=== PATIENT | female | born 1965 | race Caucasian/White ===

== ENCOUNTER 2024-09-18 09:54 | Emergency (ER) | payer MEDICAID, SELFPAY ==
[2024-09-18 10:20] VITALS: BP 155/102; PULSE 76; RESP 18; TEMP 36.8; O2SAT 98; BMI 28.1
--- NOTE | 2024-09-18 10:30 | XR_ITS ---
Examination: Bilateral hands, 6 views. Technique: AP, Oblique, Lateral each hand total 6 views Date and time of exam: September 18, 2024 10:40 AM INDICATIONS: Patient fell one month ago with injury to both hands, head pain Findings: Soft tissue atrophic change right second digit tip Prominent osteopenia Old fracture deformity ungual tuft tip distal phalanx right third digit No acute fracture No opaque foreign body IMPRESSION: No acute fracture
--- NOTE | 2024-09-18 10:30 | PD.EDRME ---
Rapid Medical Screening Exam RME Arrival date/time: 09/18/24 09:54 59-year-old homeless female presents emergency department complaints of pain to bilateral hands worse right index finger Chief Complaint: Hand/Wrist Problems Vital signs: Vital Signs Temperature 98.2 F 09/18/24 10:20 Pulse Rate 76 09/18/24 10:20 Respiratory Rate 18 09/18/24 10:20 Blood Pressure 155/102 H 09/18/24 10:20 Pulse Oximetry (%) 98 09/18/24 10:20 Oxygen Delivery Method Room Air 09/18/24 10:20
[2024-09-18 11:07] LABS: Lactate (Lactic Acid) 1.6 mMol/L (0.4-2.0)
[2024-09-18 11:10] LABS: Basophils % (Auto) 1 % (0-2.5); Eosinophils # (Auto) 0.2 Thou/mm3 (0.0-0.5); Eosinophils % (Auto) 3 % (0-10); Hematocrit 37.6 % (36.0-46.0); Hemoglobin 13.2 g/dL (12.0-16.0); Immature Granulocytes % (Auto) 0 % (0-0); Immature Granulocytes Auto 0.02 Thou/mm3 (0.00-0.00); Lymphocytes # (Auto) 1.6 Thou/mm3 (1.0-4.8); Lymphocytes % (Auto) 29 % (10-50); Mean Corpuscular HGB Conc 35.1 g/dl (31.0-37.0); Mean Corpuscular Hemoglobin 31.1 pg (25.0-35.0); Mean Corpuscular Volume 89 fL (80-100); Monocytes # (Auto) 0.4 Thou/mm3 (0.0-0.8); Monocytes % (Auto) 7 % (0-12); Neutrophils # (Auto) 3.5 Thou/mm3 (1.8-7.7); Neutrophils % (Auto) 61 % (37-80); Nucleated Red Blood Cell % 0 /100 WBC (0); Platelet Count 275 Thou/mm3 (140-440); RDW Standard Deviation 40.7 fL (36.4-46.3); Red Blood Count 4.25 Miln/mm3 (4.00-5.20); White Blood Count 5.7 Thou/mm3 (3.6-11.0)
[2024-09-18 11:27] LABS: Sed Rate (ESR) 4 mm/hr (0-30)
[2024-09-18 11:46] LABS: Amphetamine/Methamp Scrn,U Positive (Negative); Barbiturate Screen,Urine Negative (Negative); Benzodiazepines Screen,Urine Negative (Negative); Benzoylecgonine Screen, Ur Negative (Negative); Fentanyl Screen,Urine Negative (Negative); Opiate Screen,Urine Negative (Negative); THC Screen,Urine Positive (Negative)
[2024-09-18 11:47] LABS: Alanine Aminotransferase 16 U/L (10-49); Albumin, Serum 4.3 gm/dL (3.5-5.0); Albumin/Globulin Ratio 1.9 (1.2-2.2); Alkaline Phosphatase 83 U/L (46-116); Anion Gap 8 (7-16); Aspartate Amino Transferase 19 U/L (0-34); BUN/Creatinine Ratio 20 Ratio (12-20); Bilirubin,Total 0.7 mg/dL (0.3-1.2); Blood Urea Nitrogen 16 mg/dL (9-23); C-Reactive Protein < 0.4 mg/dL (0.0-0.9); Calcium 9.4 mg/dL (8.3-10.6); Calcium (Corrected) 9.4 mg/dL (8.5-10.1); Carbon Dioxide 26.6 mMol/L (20.0-31.0); Chloride 104 mMol/L (98-107); Creatinine (Component) 0.8 mg/dL (0.6-1.3); Estimated Creatinine Clearance 75.7 mL/min (>60); Globulin 2.3 gm/dL (2.3-3.5); Glucose 136 mg/dL (74-106); Osmolality,Calculated 280 (275-295); Procalcitonin 0.04 ng/ml (0.0-0.49); Sodium 139 mMol/L (136-145); Total Protein 6.6 gm/dL (5.7-8.2); eGFR > 60 See Note
--- NOTE | 2024-09-18 15:18 | PD.EDRME ---
Rapid Medical Screening Exam RME Arrival date/time: 09/18/24 09:54 09/18/24 09:54 59-year-old homeless female presents emergency department complaints of pain to bilateral hands worse right index finger Chief Complaint: Hand/Wrist Problems Time Seen by Provider: 09/18/24 15:18 Vital signs: Vital Signs Temperature 98.2 F 09/18/24 10:20 Pulse Rate 76 09/18/24 10:20 Respiratory Rate 18 09/18/24 10:20 Blood Pressure 155/102 H 09/18/24 10:20 Pulse Oximetry (%) 98 09/18/24 10:20 Oxygen Delivery Method Room Air 09/18/24 10:20 RME Narrative: 09/18/24 09:54 59-year-old homeless female presents emergency department complaints of pain to bilateral hands worse right index finger
--- NOTE | 2024-09-18 15:20 | PC.NURSE ---
CALLED FROM [facility] AND NO ANSWER
== END 2024-09-18 17:09 | disposition left against medical advice (07) ==
LOC: SERX 11:09
PROVIDERS: Nurse Practitioner Primary Care; Emergency Provider Emergency Medicine; PCP Family Medicine
DX: S69.92XA Unspecified injury of left wrist, hand and finger(s), initial encounter (principal); S69.91XA Unspecified injury of right wrist, hand and finger(s), initial encounter; W19.XXXA Unspecified fall, initial encounter; Z53.29 Procedure and treatment not carried out because of patient's decision for other reasons
CPT/HCPCS: 36415; 73130; 80053; 80307; 83605; 84145; 85025; 85652; 86140; 87040; 99281

== ENCOUNTER 2025-01-05 10:26 | Emergency (ER) | payer MEDICAID, SELFPAY ==
[2025-01-05 10:31] VITALS: BP 147/98; PULSE 81; RESP 19; TEMP 36.9; O2SAT 97
[2025-01-05 10:45] VITALS: BMI 27.4
--- NOTE | 2025-01-05 11:18 | XR_ITS ---
Examination: Hand, right 3 views Technique: Hand AP, oblique, lateral 3 views Date and time of exam: Hours INDICATIONS: Redness swelling and pain involving the hand history. FINDINGS: Cortical bone destruction involving the distal aspect distal phalanges second and third digits No fracture IMPRESSION: Osteomyelitis distal phalanges second and third digits, consider MRI hand without contrast follow-up
--- NOTE | 2025-01-05 11:18 | EDRME_ITS ---
Rapid Medical Screening Exam [facility] Arrival date/time: 01/05/25 10:26 59-year-old female presents to the emergency department today for complaints of allergic reaction, facial swelling. Patient also reports abnormality right index finger Chief Complaint: Allergic Reaction Vital signs: Vital Signs Temperature 98.4 F 01/05/25 10:31 Pulse Rate 81 01/05/25 10:31 Respiratory Rate 19 01/05/25 10:31 Blood Pressure 147/98 H 01/05/25 10:31 Pulse Oximetry (%) 97 01/05/25 10:31 Oxygen Delivery Method Room Air 01/05/25 10:31
[2025-01-05] MEDS: FAMOTIDINE 20 MG TABLET 40 MG PO (11:59)
[2025-01-05] MEDS: DEXAMETHASONE SOD PHOS INJ 10 MG/ML VIAL IM (12:03)
--- NOTE | 2025-01-05 12:04 | PC.NURSE ---
PATIENT INFORMED THIS NURSE THAT SHE HAD RECEIVED BENADRYL IM BY EMS, EDI CONSULTANT FELTON MADE AWARE AND ORDERED TO NOT GIVE BENADRYL AT THIS TIME.
[2025-01-05 12:09] LABS: Lactate (Lactic Acid) 0.9 mMol/L (0.4-2.0)
[2025-01-05 12:15] LABS: Sed Rate (ESR) 31 mm/hr (0-30)
[2025-01-05 12:18] LABS: Basophils % (Auto) 1 % (0-2.5); Eosinophils # (Auto) 0.4 Thou/mm3 (0.0-0.5); Eosinophils % (Auto) 4 % (0-10); Hematocrit 38.5 % (36.0-46.0); Hemoglobin 13.3 g/dL (12.0-16.0); Immature Granulocytes % (Auto) 1 % (0-0); Immature Granulocytes Auto 0.04 Thou/mm3 (0.00-0.00); Lymphocytes # (Auto) 2.1 Thou/mm3 (1.0-4.8); Lymphocytes % (Auto) 25 % (10-50); Mean Corpuscular HGB Conc 34.5 g/dl (31.0-37.0); Mean Corpuscular Hemoglobin 31.1 pg (25.0-35.0); Mean Corpuscular Volume 90 fL (80-100); Monocytes # (Auto) 0.6 Thou/mm3 (0.0-0.8); Monocytes % (Auto) 7 % (0-12); Neutrophils # (Auto) 5.3 Thou/mm3 (1.8-7.7); Neutrophils % (Auto) 63 % (37-80); Nucleated Red Blood Cell % 0 /100 WBC (0); Platelet Count 375 Thou/mm3 (140-440); RDW Standard Deviation 41.8 fL (36.4-46.3); Red Blood Count 4.28 Miln/mm3 (4.00-5.20); White Blood Count 8.4 Thou/mm3 (3.6-11.0)
[2025-01-05 12:24] LABS: INR 0.9 (0.9-1.3); Prothrombin Time 10.3 Seconds (9.0-12.2)
[2025-01-05 13:50] LABS: Alanine Aminotransferase 13 U/L (10-49); Albumin/Globulin Ratio 1.3 (1.2-2.2); Alkaline Phosphatase 103 U/L (46-116); Anion Gap 3 (7-16); Aspartate Amino Transferase 16 U/L (0-34); BUN/Creatinine Ratio 13 Ratio (12-20); Bilirubin,Total 0.2 mg/dL (0.3-1.2); Blood Urea Nitrogen 10 mg/dL (9-23); Calcium 8.7 mg/dL (8.3-10.6); Calcium (Corrected) 8.7 mg/dL (8.5-10.1); Carbon Dioxide 29.7 mMol/L (20.0-31.0); Chloride 105 mMol/L (98-107); Creatinine (Component) 0.8 mg/dL (0.6-1.3); Estimated Creatinine Clearance 74.8 mL/min (>60); Globulin 3.1 gm/dL (2.3-3.5); Glucose 83 mg/dL (74-106); Osmolality,Calculated 273 (275-295); Potassium 4.1 mMol/L (3.4-5.1); Procalcitonin 0.05 ng/ml (0.0-0.49); Sodium 138 mMol/L (136-145); Total Protein 7.1 gm/dL (5.7-8.2); eGFR > 60 See Note
[2025-01-05 13:52] LABS: C-Reactive Protein < 0.5 mg/dL (0.0-0.9)
[2025-01-05 15:42] LABS: Barbiturate Screen,Urine Negative (Negative); Benzodiazepines Screen,Urine Negative (Negative); Benzoylecgonine Screen, Ur Negative (Negative); Fentanyl Screen,Urine Negative (Negative); Opiate Screen,Urine Negative (Negative); THC Screen,Urine Negative (Negative)
--- NOTE | 2025-01-05 16:35 | PD.EDALLER ---
ED Allergic Reaction RME/HPI General Chief complaint: Allergic Reaction Stated complaint: ALLERGIC REACTION Arrival date/time: 01/05/25 10:26 Limitations: no limitations RME / HPI RME / HPI narrative: 01/05/25 10:26 59-year-old female presents to the emergency department today for complaints of allergic reaction, facial swelling. Patient also reports abnormality right index finger DR. VASQUEZ MAIN ED EVALUATION: 59 year old female presents to the ED BIBA for evaluation of facial swelling after being stung by a wasp on the forehead earlier this morning. She denies difficulty breathing or swallowing. While in the ED, she also reports chronic swelling of the right hand, specifically involving the 2nd and 3rd digits. She states this has been ongoing for several months, possibly related to metal exposure to the fingers. The condition has previously been evaluated in the ED, and she reports a diagnosis of osteomyelitis with a referral to a specialist in [place]. However, she has missed several follow-up appointments due to lack of transportation. She denies fever, chills, chest pain, or cough. No other complaints at this time. Related Data Home Medications ?Medication ?Instructions ?Recorded ?Confirmed multivitamin 1 tab PO QDAY 08/26/21 08/26/21 Previous Rx's ?Medication ?Instructions ?Recorded amlodipine 5 mg tablet 5 mg PO QDAY #30 tabs 08/26/21 hydrochlorothiazide 12.5 mg capsule 12.5 mg PO QAM #30 caps 08/26/21 polymyxin B sulfate 10,000 1 drp ophthalmic (eye) Q3H #10 mL 08/26/21 unit-trimethoprim 1 mg/mL eye drops sertraline 100 mg tablet 100 mg PO QDAY #30 tabs 08/26/21 amlodipine 5 mg tablet 5 mg PO QDAY #90 tabs 10/25/23 fluoxetine 20 mg capsule 20 mg PO QDAY #90 caps 10/25/23 hydrochlorothiazide 25 mg tablet 25 mg PO QDAY #90 tabs 10/25/23 diphenhydramine HCl 25 mg capsule 25 mg PO TID PRN allergic reaction 11/05/23 (Benadryl) #30 caps ibuprofen 800 mg tablet 800 mg PO Q8H PRN pain #30 tabs 11/05/23 sulfamethoxazole 800 1 tab PO BID #14 tabs 11/05/23 mg-trimethoprim 160 mg tablet (Bactrim DS) levofloxacin 500 mg tablet 500 mg PO Q24H #14 tabs 11/15/23 Allergies Allergy/AdvReac Type Severity Reaction Status Date / Time codeine Allergy Severe Hives Verified 09/18/24 09:56 hydrocodone Allergy Severe HIVES Verified 09/18/24 09:56 Review of Systems Review of Systems Narrative Review of Systems: GEN: No fever, no chills, no weight loss EYES: No discharge, no visual changes, no pain HEENT: +facial swelling after bee sting. No ear pain, no congestion, no sore throat PULM: No shortness of breath, no cough, no congestion CV: No chest pain, no dyspnea on exertion, no palpitations GI: No nausea, no vomiting, no diarrhea, no pain, no constipation : No frequency, no urgency, no dysuria MUSC/SKEL: +chronic right hand 2ng and 3rd digit swelling. No joint pain, no back pain SKIN: No rash NEURO: No weakness, no headache Past Medical History Past Medical History CARDIAC: Positive Hypertension; Negative Congestive Heart Failure RESPIRATORY: Negative Chronic Obstructive Pulmonary Disease (COPD) GENITOURINARY: Negative Renal Disease REPRODUCTIVE: Negative Genital Herpes, Gonorrhea or Syphilis ENDOCRINE: Negative Diabetes Mellitus Type 1 or Diabetes Mellitus Type 2 PSYCHO/SOCIAL: Positive Depression Surgical History SURGICAL: Positive Ear Surgery, Hysterectomy and Section (X3) Social History SMOKING STATUS: Current every day smoker SUBSTANCE USE: marijuana and methamphetamine ED Exam General Limitations: Present no limitations General appearance: Present alert and in no apparent distress Head Head exam: Present atraumatic, normocephalic and normal inspection Eye Eye exam: Present PERRL, EOMI and other (face with edema in the upper and lower lid surrounding the eye which is mild to moderate ) ENT ENT exam: Present normal exam, normal oropharynx and mucous membranes moist Neck Neck exam: Present normal inspection, full ROM and trachea midline Chest Chest inspection: Present normal inspection and symmetric chest wall rise Respiratory Respiratory exam: Present normal lung sounds bilaterally Cardiovascular Cardiovascular exam: Present regular rate, normal rhythm and normal heart sounds Abdominal Exam Abdominal exam: Present soft and normal bowel sounds Extremities Exam Extremities exam: Present full ROM and other (Distal tip of the right finger missing and well healed, the third finger does not appear erythematous and is nontender ) Back Exam Back exam: Present normal inspection and full ROM Neurological Exam Neurological exam: Present alert, oriented X3 and CN II-XII intact Psychiatric Psychiatric exam: Present normal affect and normal mood Skin Skin exam: Present warm, dry, intact and normal color Course Quality Measures none Orders Category Date Time Status XR hand comp RT min 3V Stat Exams 01/05/25 11:18 Completed Blood Culture (Lab) Stat Lab 01/05/25 11:52 Received CBC Stat Lab 01/05/25 11:49 Completed CMP [Comprehensive Metabolic Panel] Stat Lab 01/05/25 11:49 Completed CRP [C-Reactive Protein] Stat Lab 01/05/25 11:49 Completed Drug Screen,Urine Stat Lab 01/05/25 14:11 Completed ESR [Sed Rate (ESR)] Stat Lab 01/05/25 11:49 Completed Lactic Acid [Lactate (Lactic Acid)] Stat Lab 01/05/25 11:49 Completed PT [Prothrombin Time with INR] Stat Lab 01/05/25 11:49 Completed Procalcitonin Stat Lab 01/05/25 11:49 Completed Dexamethasone Inj [Decadron Inj] Med 01/05/25 11:18 Discontinued 10 mg IM X1 ONE DiphenhydrAMINE INJ [Benadryl Inj] Med 01/05/25 11:18 Discontinued 50 mg IM X1 ONE Famotidine [Pepcid] Med 01/05/25 11:18 Discontinued 40 mg PO X1 ONE Vital Signs Vital signs: Vital Signs Temperature 98.4 F 01/05/25 10:31 Pulse Rate 81 01/05/25 10:31 Respiratory Rate 19 01/05/25 10:31 Blood Pressure 147/98 H 01/05/25 10:31 Pulse Oximetry (%) 97 01/05/25 10:31 Oxygen Delivery Method Room Air 01/05/25 10:31 Pulse ox is 97% on room air which is adequate. Allergic Reaction MDM Narrative MDM Narrative:: Sharon Charles am scribing for and in the presence of Dr. Vasquez. 59 year old female with history of chronic osteomyelitis of the right hand, 2nd and 3rd digits. Reports she already has follow up scheduled with ortho this upcoming week and states she would follow up with them instead of havign any further studies performed here. Patient is in agreement with plan, will DC home. Patient data External records reviewed:: [facility] previous records (I reviewed ED visit on 11/15/2023 for osteomyelitis ) and EMS form Clinical information provided by:: patient and EMS Social determinants that could affect healthcare access:: substance use Patient has the following chronic illnesses:: chronic osteomyelitis How is presenting disease/condition affected by chronic disease/condition?: exacerbated by Evaluation data The following diagnostics were reviewed and interpreted by me:: lab results and radiology exam(s) Lab and/or radiology exams considered but not ordered:: None Interpretation Summary: Ordering Physician: Coleman KING),Andrea ZUNIGA Date of Service: 01/05/25 Procedure(s): XR hand comp RT min 3V Accession Number(s): [id number] cc: Coleman KING),Andrea ZUNIGA; Adina Londono NP; Dustin Hyman MD~ Examination: Hand, right 3 views Technique: Hand AP, oblique, lateral 3 views Date and time of exam: Hours INDICATIONS: Redness swelling and pain involving the hand history. FINDINGS: Cortical bone destruction involving the distal aspect distal phalanges second and third digits No fracture IMPRESSION: Osteomyelitis distal phalanges second and third digits, consider MRI hand without contrast follow-up Dictated By: Dustin Hyman MD Signed By: <Electronically signed by Dustin Hyman MD in OV> 01/05/25 1315 Medications / Prescriptions Medications or Prescriptions considered but not ordered:: None Medication administrations:: Medication Administration History Discontinued Medications Dexamethasone Sodium Phosphate (Dexamethasone Sod Phos Inj 10 Mg/Ml Vial) 10 mg IM X1 ONE Stop: 01/05/25 11:19 Last Admin: 01/05/25 12:03 Dose: 10 mg Documented By: DACIA Diphenhydramine HCl (Diphenhydramine Inj 50 Mg/Ml Vial) 50 mg IM X1 ONE Stop: 01/05/25 11:19 Last Admin: 01/05/25 12:02 Dose: Not Given Documented By: DACIA Non-Admin Reason: Other, see note Famotidine (Famotidine 20 Mg Tablet) 40 mg PO X1 ONE Stop: 01/05/25 11:19 Last Admin: 01/05/25 11:59 Dose: 40 mg Documented By: DACIA See above Consultations Consultation(s) initiated? (list below): No Diagnosis Most likely diagnosis given after review of the tests above:: Allergic reaction Chronic cortical bone destruction second and third fingers Admission Indicated Admission indicated?: not indicated Admission Request Was there a request for admission?: No Disposition Plan Disposition Plan: Discharge Discharge Attestation Discharge Attestation: The patient and all family members were given an opportunity to ask questions and understood the discharge instructions. Discharge instructions specifically effects, indications for sooner follow up or return to the emergency department, and the expected course of current diagnosis. Patient condition: Stable Discharge Plan Plan Patient Disposition: HOME (Self Care) Prescriptions/Referrals Prescriptions/Med Rec: No Action amlodipine 5 mg tablet 5 mg PO QDAY Qty: 30 0RF hydrochlorothiazide 12.5 mg capsule 12.5 mg PO QAM Qty: 30 0RF polymyxin B sulf-trimethoprim 10,000 unit- 1 mg/mL drops 1 drp ophthalmic (eye) Q3H Qty: 10 0RF Rx Instructions: while awake; do not exceed 6 doses in 24 hours sertraline 100 mg tablet 100 mg PO QDAY Qty: 30 0RF multivitamin Tablet 1 tab PO QDAY amlodipine 5 mg tablet 5 mg PO QDAY Qty: 90 0RF hydrochlorothiazide 25 mg tablet 25 mg PO QDAY Qty: 90 0RF fluoxetine 20 mg capsule 20 mg PO QDAY Qty: 90 0RF sulfamethoxazole-trimethoprim [Bactrim DS] 800-160 mg tablet 1 tab PO BID Qty: 14 0RF ibuprofen 800 mg tablet 800 mg PO Q8H PRN (Reason: pain) Qty: 30 0RF diphenhydramine HCl [Benadryl] 25 mg capsule 25 mg PO TID PRN (Reason: allergic reaction) Qty: 30 0RF levofloxacin 500 mg tablet 500 mg PO Q24H Qty: 14 0RF Referrals: Adina Londono AUTOMOTIVE CONSULTANT [Primary Care Provider] - In 1 week Problem List Clinical Impression: Allergic reaction, Chronic osteomyelitis Patient/Caregiver Discharge Instructions Additional Instructions: Follow up with orthopedics this week regarding your hand. Follow-up with your primary care doctor in 3 to 5 days for recheck. You can return to the emergency department sooner if symptoms worsen or if you notice any new, concerning issues. Print Language: Fijian Stand Alone Forms: Cheryl Award Info., Patient Portal Info Letter
[2025-01-05 16:50] LABS: Amphetamine/Methamp Scrn,U Positive (Negative)
== END 2025-01-05 17:17 | disposition home or self-care (01) ==
PROVIDERS: Nurse Practitioner Primary Care; Emergency Provider Family Medicine; PCP Nurse Practitioner Women's Health
DX: T63.461A Toxic effect of venom of wasps, accidental (unintentional), initial encounter (principal); R22.0 Localized swelling, mass and lump, head; M86.641 Other chronic osteomyelitis, right hand
CPT/HCPCS: 36415; 73130; 80053; 80307; 83605; 84145; 85025; 85610; 85652; 86140; 87040; 96372; 99283; J1100; A9270

== ENCOUNTER 2025-08-17 11:05 | Emergency (ER) | payer MEDICAID, SELFPAY ==
[2025-08-17 11:11] VITALS: PULSE 81; O2SAT 97; BMI 29.2
--- NOTE | 2025-08-17 11:20 | PD.EDADULT ---
ED General RME/HPI General Chief complaint: Dizziness Stated complaint: DIZZINESS Time Seen by Provider: 08/17/25 11:14 Arrival date/time: 08/17/25 11:05 60-year-old female patient with significant history of sinusitis, hypertension, depression, homeless, came in with EMS for evaluation regarding dizziness. Patient has been having worsening dizziness for the last 2 days, associated with headache, severity moderate. Patient also complained of not feeling well. Denies any fever denies any cough denies any chest pain denies any abdominal pain. Patient told me that 2 weeks ago she fell and hit her head. No LOC during this time no nausea no vomiting. Patient is not taking any blood thinner. Related Data Home Medications ?Medication ?Instructions ?Recorded ?Confirmed multivitamin 1 tab PO QDAY 08/26/21 08/26/21 Previous Rx's ?Medication ?Instructions ?Recorded amlodipine 5 mg tablet 5 mg PO QDAY #30 tabs 08/26/21 hydrochlorothiazide 12.5 mg capsule 12.5 mg PO QAM #30 caps 08/26/21 polymyxin B sulfate 10,000 1 drp ophthalmic (eye) Q3H #10 mL 08/26/21 unit-trimethoprim 1 mg/mL eye drops sertraline 100 mg tablet 100 mg PO QDAY #30 tabs 08/26/21 amlodipine 5 mg tablet 5 mg PO QDAY #90 tabs 10/25/23 fluoxetine 20 mg capsule 20 mg PO QDAY #90 caps 10/25/23 hydrochlorothiazide 25 mg tablet 25 mg PO QDAY #90 tabs 10/25/23 diphenhydramine HCl 25 mg capsule 25 mg PO TID PRN allergic reaction 11/05/23 (Benadryl) #30 caps ibuprofen 800 mg tablet 800 mg PO Q8H PRN pain #30 tabs 11/05/23 sulfamethoxazole 800 1 tab PO BID #14 tabs 11/05/23 mg-trimethoprim 160 mg tablet (Bactrim DS) levofloxacin 500 mg tablet 500 mg PO Q24H #14 tabs 11/15/23 prednisone 20 mg tablet See Taper PO BID allergic reaction 01/05/25 #10 tabs ibuprofen 800 mg tablet 800 mg PO Q8H PRN pain #30 tabs 08/17/25 meclizine 50 mg tablet 50 mg PO BID PRN dizziness #30 tabs 08/17/25 Allergies Allergy/AdvReac Type Severity Reaction Status Date / Time codeine Allergy Severe Hives Verified 09/18/24 09:56 hydrocodone Allergy Severe HIVES Verified 09/18/24 09:56 Review of Systems Review of Systems Narrative Review of Systems: Review of system reviewed and within normal limits except mentioned in HPI ED Exam Narrative Physical exam: VITAL SIGNS: Reviewed. GENERAL APPEARANCE: Alert and interactive, follows commands, no acute distress, HEAD AND FACE: Non-traumatic. ENT: PERRL, pink conjunctivitis, eyelid no trauma, Mucous membrane moist. NECK: Supple, nontender, no nuchal rigidity. CHEST: No tenderness, no crepitus, no paradoxical movement, no retractions. LUNGS: Clear, well ventilated, symmetric, no rales, no wheezing, no ronchi, no stridor, good breath sounds bilaterally. HEART: Regular rate, regular rhythm, no murmur, no gallops. ABDOMEN: Soft, positive bowel sounds, nondistended, no guarding, nontender, no rebound, no masses, RECTAL: Deferred. GENITAL: Deferred. NEUROLOGICAL: Gross motor function intact sensory function intact, Appropriate for age. MUSCULOSKELETAL: low back nontender, full range of motion. EXTREMITIES: Nontender, full range of motion. SKIN: Color pink, dry, no rash, no lacerations, no abrasions, no contusions. LYMPHATICS: Deferred. Course Quality Measures none Orders Category Date Time Status EKG (ED ONLY) *Do not use* NOW Care 08/17/25 11:[address] head/brain wo con Stat Exams 08/17/25 11:21 Completed EKG (ED Only) Stat Exams 08/17/25 11:21 Draft XR chest 1V Stat Exams 08/17/25 11:21 Completed CBC Stat Lab 08/17/25 11:32 Completed Comprehensive Metabolic Panel Stat Lab 08/17/25 11:32 Completed Partial Thromboplastin Time Stat Lab 08/17/25 11:32 Completed Urinalysis, C/S if Indicated Stat Lab 08/17/25 13:15 Completed Acetaminophen Tab [Tylenol ES Tab] Med 08/17/25 11:21 Discontinued 1,000 mg PO X1 ONE Meclizine HCl [Antivert] Med 08/17/25 11:21 Discontinued 50 mg PO X1 ONE Discharge Plan Plan Patient Disposition: HOME (Self Care) Discharge Disposition comment: Stable Prescriptions/Referrals Prescriptions/Med Rec: New meclizine 50 mg tablet 50 mg PO BID PRN (Reason: dizziness) Qty: 30 0RF ibuprofen 800 mg tablet 800 mg PO Q8H PRN (Reason: pain) Qty: 30 0RF No Action amlodipine 5 mg tablet 5 mg PO QDAY Qty: 30 0RF hydrochlorothiazide 12.5 mg capsule 12.5 mg PO QAM Qty: 30 0RF polymyxin B sulf-trimethoprim 10,000 unit- 1 mg/mL drops 1 drp ophthalmic (eye) Q3H Qty: 10 0RF Rx Instructions: while awake; do not exceed 6 doses in 24 hours sertraline 100 mg tablet 100 mg PO QDAY Qty: 30 0RF multivitamin Tablet 1 tab PO QDAY amlodipine 5 mg tablet 5 mg PO QDAY Qty: 90 0RF hydrochlorothiazide 25 mg tablet 25 mg PO QDAY Qty: 90 0RF fluoxetine 20 mg capsule 20 mg PO QDAY Qty: 90 0RF sulfamethoxazole-trimethoprim [Bactrim DS] 800-160 mg tablet 1 tab PO BID Qty: 14 0RF ibuprofen 800 mg tablet 800 mg PO Q8H PRN (Reason: pain) Qty: 30 0RF diphenhydramine HCl [Benadryl] 25 mg capsule 25 mg PO TID PRN (Reason: allergic reaction) Qty: 30 0RF levofloxacin 500 mg tablet 500 mg PO Q24H Qty: 14 0RF prednisone 20 mg tablet See Taper PO BID MDD 2 Qty: 10 0RF Taper: Prednisone Taper 20 mg TWICE A DAY for 5 Days and 10 Hours 10 mg DAILY for 2 Days and 0 Hour 5 mg DAILY for 7 Days and 0 Hour Problem List Clinical Impression: Dizziness Patient/Caregiver Discharge Instructions Discharge Activity: activity as tolerated Education Materials: [facility] Tx Additional Instructions: Thank you for the opportunity for serving you today. You are stable for discharged . You are advised to: Follow-up with your PCP in 1 to 2 days Return to ED for worsening of symptoms Increase oral fluids Take medication as prescribed Print Language: Syriac Stand Alone Forms: Cheryl Award Info., Patient Portal Info Letter PA/BACON SK[employer]IFTER Supervising Physician PA/BACON SKIN [employer]IFTER Supervising Physician: MD Aretha MDM Narrative MDM hospital course (for use when minimal MDM required): 60-year-old female patient with significant history of sinusitis, hypertension, depression, homeless, came in with EMS for evaluation regarding dizziness. Patient has been having worsening dizziness for the last 2 days, associated with headache, severity moderate. Patient also complained of not feeling well. Denies any fever denies any cough denies any chest pain denies any abdominal pain. Patient told me that 2 weeks ago she fell and hit her head. No LOC during this time no nausea no vomiting. Patient is not taking any blood thinner. CT scan of the head came back unremarkable. Chest x-ray also came back unremarkable patient's workup also came back normal. EKG showed sinus rhythm, ventricular rate of 67 bpm, no ST segment elevation or depression noted. Patient was given Tylenol and meclizine with complete resolution of symptoms. Was also given drink and food in the emergency room patient is ambulatory stable discharge home Medication Administration(s) Medication Administration History Discontinued Medications Acetaminophen (Acetaminophen 500 Mg Tablet) 1,000 mg PO X1 ONE Stop: 08/17/25 11:22 Last Admin: 08/17/25 11:27 Dose: 1,000 mg Documented By: ZAKI Meclizine HCl (Meclizine Hcl 25 Mg Tablet) 50 mg PO X1 ONE Stop: 08/17/25 11:22 Last Admin: 08/17/25 11:27 Dose: 50 mg Documented By: ZAKI
--- NOTE | 2025-08-17 11:21 | XR_ITS ---
EXAMINATION: AP chest single view TECHNIQUE: AP portable upright chest single view Date and time: August 17, 2025, 1137 hours INDICATIONS: Chest pain today. FINDINGS: Normal heart size Lungs are clear. Moderate osteopenia IMPRESSION: No active disease
--- NOTE | 2025-08-17 11:21 | EKG_ITS ---
[facility] Test Date: 2025-08-17 Pat Name: YARITZA PAYNE Department: Room: - Gender: Female [employer] Project Manager: : 1965 Requested By: Bridger Rae Order Number: [id number] Reading MD: Bridger Rae Measurements Intervals [place] Rate: 67 P: 72 IN: 175 QRS: 45 QRSD: 131 T: 30 QT: 421 QTc: 447 Interpretive Statements SINUS RHYTHM RIGHT BUNDLE BRANCH BLOCK [120+ ms QRS DURATION, UPRIGHT V1, 40+ ms S IN I/aVL/V4/V5/V6] No previous ECG available for comparison /store/S0/[id number].pdf
--- NOTE | 2025-08-17 11:21 | XR_ITS ---
Examination: CT brain head without contrast. 2-D sagittal coronal reconstructions Date and time of exam: August 17, 2025, 1155 hours INDICATIONS: Headache dizziness after falling today CTDI: vol (mGy): 49.8 DLP: (mGycm): 1019 Technique: Multiple CT axial sections of the brain have been obtained, 5 mm slice thickness. Contrast has not been administered. 2-D sagittal, coronal reconstructions have been obtained Low dose protocols were performed. One or more of the following dose reduction techniques were used; automated exposure control, adjustment of the mA and/or KV according to patient size, use of iterative reconstruction technique. Findings: No significant ventricular enlargement. Intra-axial or extra-axial hemorrhage density is not seen. No mass effect or midline shift Basal cisterns are not remarkable. Fourth ventricle is midline. Cranial vault intact. Impression: Negative for acute hemorrhage, mass effect or midline shift
[2025-08-17] MEDS: MECLIZINE HCL 25 MG TABLET 50 MG PO (11:27)
[2025-08-17] MEDS: ACETAMINOPHEN 500 MG TABLET 1000 MG PO (11:27)
[2025-08-17 12:00] LABS: Basophils # (Auto) 0.0 Thou/mm3 (0.0-0.2); Basophils % (Auto) 1 % (0-2.5); Eosinophils # (Auto) 0.2 Thou/mm3 (0.0-0.5); Eosinophils % (Auto) 3 % (0-10); Hematocrit 41.2 % (36.0-46.0); Hemoglobin 13.9 g/dL (12.0-16.0); Immature Granulocytes Auto 0.01 Thou/mm3 (0.00-0.00); Lymphocytes # (Auto) 1.9 Thou/mm3 (1.0-4.8); Lymphocytes % (Auto) 34 % (10-50); Mean Corpuscular HGB Conc 33.7 g/dl (31.0-37.0); Mean Corpuscular Hemoglobin 30.8 pg (25.0-35.0); Mean Corpuscular Volume 91 fL (80-100); Monocytes # (Auto) 0.6 Thou/mm3 (0.0-0.8); Monocytes % (Auto) 10 % (0-12); Neutrophils # (Auto) 3.0 Thou/mm3 (1.8-7.7); Neutrophils % (Auto) 53 % (37-80); Nucleated Red Blood Cell # 0.00 Thou/mm3 (0.00-0.00); Nucleated Red Blood Cell % 0 /100 WBC (0); Platelet Count 291 Thou/mm3 (140-440); RDW Standard Deviation 41.4 fL (36.4-46.3); Red Blood Count 4.52 Miln/mm3 (4.00-5.20); White Blood Count 5.7 Thou/mm3 (3.6-11.0)
[2025-08-17 12:23] LABS: Partial Thromboplastin Time 26.5 Seconds (22.0-36.0)
[2025-08-17 12:31] LABS: Alanine Aminotransferase 11 U/L (10-49); Albumin, Serum 4.2 gm/dL (3.5-5.0); Albumin/Globulin Ratio 1.7 (1.2-2.2); Alkaline Phosphatase 78 U/L (46-116); Anion Gap 7 (7-16); Aspartate Amino Transferase 16 U/L (0-34); BUN/Creatinine Ratio 15 Ratio (12-20); Bilirubin,Total 0.2 mg/dL (0.3-1.2); Blood Urea Nitrogen 12 mg/dL (9-23); Calcium 9.4 mg/dL (8.3-10.6); Calcium (Corrected) 9.4 mg/dL (8.5-10.1); Carbon Dioxide 29.4 mMol/L (20.0-31.0); Chloride 105 mMol/L (98-107); Creatinine (Component) 0.8 mg/dL (0.6-1.3); Estimated Creatinine Clearance 76.1 mL/min (>60); Globulin 2.5 gm/dL (2.3-3.5); Glucose 98 mg/dL (74-106); Osmolality,Calculated 280 (275-295); Potassium 4.4 mMol/L (3.4-5.1); Sodium 141 mMol/L (136-145); Total Protein 6.7 gm/dL (5.7-8.2); eGFR > 60 See Note
[2025-08-17 13:25] LABS: Collection Type, Urine Clean Catch
[2025-08-17 13:42] LABS: Bilirubin,Urine Negative (Negative); Blood,Urine Negative (Negative); Clarity,Urine Clear (Clear/Hazy); Culture Indicated,Urine Not Indicated; Glucose, Urine Negative (Negative); Ketones,Urine Negative (Negative); Leukocyte Esterase,Urine Negative (Negative); Nitrite,Urine Negative (Negative); PH,Urine 6.5 (5.0-7.0); Protein,Urine Negative (Neg - Trace); RBC,Urine 1 /hpf (0-3); Specific Gravity,Urine 1.008 (1.001-1.035); Squamous Epithelial Cell,Urine 1 /hpf (0-5); Urobilinogen,Urine Negative mg/dL (0.0-1.0); WBC,Urine 1 /hpf (0-5)
[2025-08-17 13:53] LABS: Color,Urine Lt-Yellow (Lt Yel-Yel)
== END 2025-08-17 15:42 | disposition home or self-care (01) ==
LOC: SERX 15:37
PROVIDERS: Nurse Practitioner Family; Emergency Provider Emergency Medicine
DX: R42 Dizziness and giddiness (principal); R07.9 Chest pain, unspecified; R51.9 Headache, unspecified; I45.10 Unspecified right bundle-branch block; I10 Essential (primary) hypertension; Z91.81 History of falling; Z59.00 Homelessness unspecified
CPT/HCPCS: 36415; 70450; 71045; 80053; 81001; 85025; 85730; 93005; 99283; A9270